=== PATIENT | female | born 1940 | race African-American/Black ===

== ENCOUNTER 2017-04-18 18:46 | Emergency (ER) | payer OTHER ==
[~2017-04-18 18:46] MED LIST: ACTOS30 PO; ARICEPT10 PO; ASAB PO; CALTRA600D PO; CAT1 PO; CENTRUM TAB1 TAB PO; DUONEB INH; EXFORGE PO; EXFORGE1 TA1 PO; FERRETTS325 MG PO; FLOVENT220 INH; FOSAMAX35 MG PO; ISOSORB DIN30 MG PO; K-TABS10 MEQ PO; K500 PO; L40 PO; LIPITOR10 PO; MAG CITRATE PO/LIQ; PRIMATENE; T300 PO; VENTOLIN HFA INH; ZETIA PO
[2017-04-18 22:33] LABS: ALBUMIN 3.7 G/DL (3.5-5.0); ALKALINE PHOSPHATASE 120 U/L (45-117); BUN (BLOOD UREA NITROGEN) 14 MG/DL (6-23); CALCIUM, SERUM 9.6 MG/DL (8.5-10.4); CHLORIDE, SERUM 94 MMOL/L (96-112); CO2 (CARBON DIOXIDE) 29 MMOL/L (24-34); CREATININE 1.35 MG/DL (0.55-1.02); GFR AFRICAN AMERICAN 43 ML/MIN (>=60); GFR NON AFRICAN AMERICAN 38 ML/MIN (>=60); GLOBULIN 3.8 G/DL (2.5-4.1); GLUCOSE, SERUM 120 MG/DL (60-99); POTASSIUM, SERUM 3.7 MMOL/L (3.5-5.3); SGOT(AST) 25 U/L (5-40); SGPT(ALT) 24 U/L (5-65); SODIUM, SERUM 126 MMOL/L (135-148); TOTAL BILIRUBIN 1.3 MG/DL (0-1.2); TOTAL PROTEIN 7.5 G/DL (6.0-8.5)
[2017-04-18 22:49] LABS: BASOPHILS 0.5 %; BASOPHILS ABSOLUTE 0.03 10/3/uL (0.0-0.16); EOSINOPHILS ABSOLUTE 0.19 10/3/uL (0.0-0.53); HEMOGLOBIN 12.5 g/dL (12.0-16.0); IMMATURE GRANULOCYTES 0.2 %; IMMATURE GRANULOCYTES ABSOLUTE 0.01 10/3/uL (0.0-0.11); LYMPHOCYTES 28.6 %; LYMPHOCYTES ABSOLUTE 1.82 10/3/uL (0.67-4.30); MEAN CORPUS HGB CONC 34.6 g/dL (32.0-36.0); MEAN CORPUSCULAR HEMOGLOB 27.2 pg (26.0-34.0); MEAN PLATELET VOLUME 10.8 fL (9.2-13.0); MONOCYTES 10.7 %; MONOCYTES ABSOLUTE 0.68 10/3/uL (0.21-1.20); NEUTROPHILS ABSOLUTE 3.64 10/3/uL (2.02-8.40); PLATELET COUNT 129 10/3/uL (150-400); RBC DISTRIBUTION WIDTH 16.3 % (12.0-16.0); WHITE BLOOD CELLS 6.4 10/3/uL (4.5-10.5)
[2017-04-18 22:52] LABS: ER CBC TAT 0 Hrs 29 Mins; HEMATOCRIT 36.1 % (36.0-48.0); MANUAL DIFF NO %; MEAN CORPUSCULAR VOLUME 78.5 fL (80-100)
[2017-04-18 22:54] LABS: PLATELET ESTIMATE SLT DEC (ADEQUATE)
[2017-06-30] MEDS ORDERED: KLOR-CON M2020 MEQ PO (12:20)
[2017-06-30] MEDS ORDERED: T300 PO (12:21)
[2017-06-30] MEDS ORDERED: EXFORGE1 TA1 PO (12:22)
[2017-06-30] MEDS ORDERED: CENTRUM PO (12:23)
[2017-06-30] MEDS ORDERED: ZETIA PO (12:23)
[2017-06-30] MEDS ORDERED: ASAB PO (12:24)
[2017-06-30] MEDS ORDERED: LIPITOR10 PO (12:24)
[2017-06-30] MEDS ORDERED: CAT1 PO (12:25)
[2017-06-30] MEDS ORDERED: ARICEPT10 PO (12:26)
[2017-06-30] MEDS ORDERED: L20 PO (12:26)
[2017-06-30] MEDS ORDERED: IMDUR30 PO (12:26)
[2017-06-30] MEDS ORDERED: PROAIR HFA INH (12:34)
== END 2017-04-18 23:31 | disposition home or self-care (01) ==
LOC: ER 18:46
PROVIDERS: Emergency Medicine
DX: S22.31XA Fracture of one rib, right side, initial encounter for closed fracture (principal); F03.90 Unspecified dementia, unspecified severity, without behavioral disturbance, psychotic disturbance, mood disturbance, and anxiety; J45.909 Unspecified asthma, uncomplicated; E11.9 Type 2 diabetes mellitus without complications; E78.5 Hyperlipidemia, unspecified; I10 Essential (primary) hypertension; W19.XXXA Unspecified fall, initial encounter; Z88.0 Allergy status to penicillin; Z79.899 Other long term (current) drug therapy; Z79.82 Long term (current) use of aspirin
CPT/HCPCS: 71010; 71100-RT; 80053; 85025; 96372; 99284; A9270-GY; J2800